=== PATIENT | female | born 1970 | race Caucasian/White ===

== ENCOUNTER 2022-06-30 06:27 | Day surgery (SDC) | payer OTHER ==
[~2022-06-30] VITALS: Ht 160 cm; Wt 70.3 kg
[~2022-06-30 06:27] MED LIST: BIOTIN1000 MCG PO; DULERA 50-5 MCG1 AER; PROVENTIL IN; ZOLOFT50 MG PO; [UNRECOGNIZED DRUG - OTHER] PO
[2022-06-30 08:30] VITALS: BP 114/72
[2022-06-30] MEDS ORDERED: OMEPRAZOLE20 MG PO (12:32)
== END 2022-06-30 08:32 | disposition home or self-care (01) | DRG 392 ==
LOC: ENDO 06:27 → ORM 10:00 → ENDO 10:00 → ORM 11:00
PROVIDERS: ATTEND Surgery
PROC: 0DB68ZX Excision of Stomach, Via Natural or Artificial Opening Endoscopic, Diagnostic (ICD-10-PCS; principal; 2022-06-30)
PROC: 0DJD8ZZ Inspection of Lower Intestinal Tract, Via Natural or Artificial Opening Endoscopic (ICD-10-PCS; 2022-06-30)
DX: K29.70 Gastritis, unspecified, without bleeding (principal); K31.7 Polyp of stomach and duodenum; Z12.11 Encounter for screening for malignant neoplasm of colon; Z86.010 Personal history of colon polyps; Z87.19 Personal history of other diseases of the digestive system